=== PATIENT | male | born 1995 | race Caucasian/White ===

== ENCOUNTER 2022-06-16 16:17 | Observation (INO) | payer OTHER ==
--- NOTE | 2022-06-16 16:20 | NUR ---
Patient to room 319 from [facility]. Nurse oriented the patient to location, call light and room. Patient A&Ox4. VSS. IV CDI. Ice pack on genitals. Reports that he "broke his nataliia" Call light within reach. Patient NPO for a procedure
[2022-06-16] MEDS ORDERED: PROZAC60 MG PO (16:30)
--- NOTE | 2022-06-16 16:55 | NUR ---
Patient taken down to the OR
[2022-06-16 17:07] VITALS: BP 152/63; PULSE 81; TEMP 98.3
[2022-06-16] MEDS ORDERED: ROXICODONE 55 MG/TAB PO (17:15)
--- NOTE | 2022-06-16 17:22 | NUR ---
Patient to room 319 from the OR. No report called to this nurse. MANAGER PE went to pick the patient up and transfer to the floor. Nurse read reports to get updates on the patient. Call light within reach
--- NOTE | 2022-06-16 18:35 | NUR ---
Discharge paperwork reviewed with the patient and at the bedside. Patient verbalized an understanding to follow doctors orders. IV removed, tip intact. Patient ambulated independently to the ED entrance to awaiting vehicle. No further needs expressed
== END 2022-06-16 18:35 | disposition home or self-care (01) ==
LOC: MEDICAL 16:17
PROVIDERS: ADMIT Urology
DX: S30.21XA Contusion of penis, initial encounter (principal)
CPT/HCPCS: G0378; J1885